=== PATIENT | male | born 1980 | race Two or more races ===

== ENCOUNTER → 2025-03-02 | Outpatient (CLI) | payer MEDICAID, SELFPAY ==
--- NOTE | 2025-03-02 14:48 | XR_ITS ---
Examination: Abdomen AP single view Technique: AP portable supine abdomen, single view Exam date and time: March 02, 2025 1450 hours INDICATIONS: Left flank pain abdominal pain beginning 2 weeks ago. FINDINGS: No renal or ureteral calculi noted Nonobstructive bowel gas pattern IMPRESSION: No renal or ureteral calculi
== END | disposition home or self-care (01) ==
PROVIDERS: PCP Behavior Technician; Referring Provider Surgery; Visit Provider Surgery
DX: N20.0 Calculus of kidney (principal)
CPT/HCPCS: 74018